=== PATIENT | female | born 1950 | race Caucasian/White ===

== ENCOUNTER 2023-06-10 00:40 | Inpatient (IN) | payer MEDICARE, OTHER ==
[~2023-06-10] VITALS: Ht 162.6 cm; Wt 74.8 kg
[2023-06-10] MEDS ORDERED: LORAZEPAM 1 MG TABLET PO ONE (01:30)
[2023-06-10] MEDS ORDERED: LORAZEPAM 0.5 MG TABLET ONE (01:30)
[2023-06-10] MEDS ORDERED: hydrOXYzine 10 MG TABLET ONE (01:30)
[2023-06-10] MEDS ORDERED: hydrOXYzine 10 MG TABLET PO ONE (01:30)
[2023-06-10] MEDS ORDERED: METF-442 PO (01:37)
[2023-06-10] MEDS ORDERED: FLUT1DIS3 INH (01:37)
[2023-06-10] MEDS ORDERED: LINA145C PO (01:37)
[2023-06-10] MEDS ORDERED: DILT180C93 PO (01:37)
[2023-06-10] MEDS ORDERED: HYDR-500 PO (01:37)
[2023-06-10] MEDS ORDERED: GABA-532 PO (01:37)
[2023-06-10] MEDS ORDERED: INSU100V27 SQ (01:37)
[2023-06-10] MEDS ORDERED: ONDA4TAB5 PO (01:37)
[2023-06-10] MEDS ORDERED: LEVO125T8 PO (01:37)
[2023-06-10] MEDS ORDERED: ISOS30TA86 PO (01:37)
[2023-06-10] MEDS ORDERED: ALBU2.5V13 NEB (01:37)
[2023-06-10] MEDS ORDERED: PANT40TA49 PO (01:37)
[2023-06-10] MEDS ORDERED: HYDR-4076 PO (01:37)
[2023-06-10] MEDS ORDERED: LISI20TA30 PO (01:37)
[2023-06-10] MEDS ORDERED: MELA1TAB47 PO (01:37)
[2023-06-10] MEDS ORDERED: CETI10TA14 PO (01:37)
[2023-06-10] MEDS ORDERED: IPRA4AER IH (01:37)
[2023-06-10] MEDS ORDERED: ASPI-869 PO (01:37)
[2023-06-10] MEDS ORDERED: METO-295 PO (01:37)
[2023-06-10] MEDS ORDERED: ROSU40TA PO (01:37)
[2023-06-10] MEDS ORDERED: INSU100V7 SQ (01:37)
[2023-06-10] MEDS ORDERED: GABA600T12 PO (01:37)
[2023-06-10] MEDS ORDERED: FERR325T23 PO (01:37)
[2023-06-10 03:01] LABS: BASOPHILS # (AUTO) 0.2 K/uL (0.0-0.2); EOSINOPHILS # (AUTO) 0.6 K/uL (0.0-0.7); EOSINOPHILS % (AUTO) 5.1 % (0.0-6.0); HEMATOCRIT 39 % (33-45); HEMOGLOBIN 12.7 g/dL (11.5-14.8); LYMPHOCYTES # (AUTO) 0.8 K/uL (0.8-4.8); LYMPHOCYTES % (AUTO) 7.2 % (20.0-44.0); MEAN CORPUSCULAR HEMOGLOBIN 26 PG (26.0-33.0); MEAN CORPUSCULAR HGB CONC 32 g/dl (31.0-36.0); MEAN CORPUSCULAR VOLUME 79 fL (82-100); MONOCYTES # (AUTO) 0.4 K/uL (0.1-1.30); MONOCYTES % (AUTO) 3.6 % (2.0-12.0); NEUTROPHILS # (AUTO) 9.4 K/uL (1.8-8.9); NEUTROPHILS % (AUTO) 82.1 % (43.0-81.0); PLATELET COUNT (AUTO) 377 K/uL (150-450); RED BLOOD CELL COUNT(AUTO) 4.97 MIL/uL (4.0-5.2); RED CELL DISTRIBUTION WIDTH 15.8 % (11.5-15.0); WHITE BLOOD COUNT (AUTO) 11.4 K/uL (4.3-11.0)
[2023-06-10 03:06] LABS: CARBON DIOXIDE 26 mmol/L (21-32); CHLORIDE 98 mmol/L (98-107); CREATININE 0.8 mg/dL (0.6-1.3); GLUCOSE 137 mg/dL (74-106); POTASSIUM 4.4 mmol/L (3.5-5.1); SODIUM SERUM 135 mmol/L (136-145); UREA NITROGEN, BLOOD 12 mg/dL (7-18)
[2023-06-10 03:12] LABS: ALANINE AMINOTRANSFERASE 24 U/L (12-78); ALBUMIN 3.8 g/dL (3.4-5.0); ALKALINE PHOSPHATASE 119 U/L (46-116); ASPARTATE AMINOTRANSFERASE 11 U/L (15-37); BILIRUBIN,DIRECT 0.1 mg/dL (0.0-0.2); BILIRUBIN,TOTAL 0.2 mg/dL (0.2-1.0); TOTAL PROTEIN, SERUM 7.4 g/dL (6.4-8.2)
[2023-06-10 03:14] LABS: ACETAMINOPHEN <10 ug/ml (10-30); ALCOHOL, BLOOD < 3 mg/dL (0-10); SALICYLATE 1.6 mg/dL (2.8-20.0)
[2023-06-10] MEDS ORDERED: MAG HYDROX/AL HYDROX/SIMETH 30 ML UDC PO PRN ×2 (05:00→13:30)
[2023-06-10] MEDS ORDERED: TEMAZEPAM 7.5 MG CAPSULE PO PRN (05:00)
[2023-06-10] MEDS ORDERED: MAGNESIUM HYDROXIDE 30 ML UDC PO PRN (05:00)
[2023-06-10] MEDS ORDERED: BLOOD SUGAR DIAGNOSTIC 1 EACH STRIP IN ONE (05:00)
[2023-06-10] MEDS ORDERED: ACETAMINOPHEN 325 MG TABLET PO PRN ×2 (05:00→13:00)
[2023-06-10 05:28] VITALS: BP 137/78; TEMP 98; O2SAT 95
[2023-06-10 08:00] VITALS: BP 138/68; TEMP 97.8; O2SAT 94
[2023-06-10] MEDS ORDERED: HYDR-3895 PO (08:52)
[2023-06-10] MEDS ORDERED: ALBU2.5V38 HHN (08:52)
[2023-06-10] MEDS ORDERED: FLUT16SP16 BNOSTRILS (08:52)
[2023-06-10] MEDS ORDERED: SIME80TA15 PO (08:52)
[2023-06-10] MEDS ORDERED: SODI100037 PO (08:52)
[2023-06-10] MEDS ORDERED: SENN-261 PO (08:52)
[2023-06-10] MEDS ORDERED: ACET-868 PO (08:52)
[2023-06-10] MEDS ORDERED: CYAN500T64 PO (08:52)
[2023-06-10] MEDS: Z GUARD REMEDY 4 OZ OINT TP SCH (12:10)
[2023-06-10] MEDS ORDERED: FLUTICASONE PROPIONATE 16 GM BOTTLE NS PRN (13:00)
[2023-06-10] MEDS ORDERED: METOCLOPRAMIDE HCL 10 MG TABLET PO PRN (13:00)
[2023-06-10] MEDS: ALBUTEROL FS 2.5 MG/0.5 ML VIAL.NEB NEB SCH ×2 (13:30→19:30)
[2023-06-10] MEDS: oxyCODONE IR immediate release 5 MG PO PRN ×2 (14:55→23:09)
[2023-06-10 15:59] VITALS: BP 122/78; TEMP 97.9; O2SAT 92
[2023-06-10] MEDS: FERROUS SULFATE (325 MG) 325 MG/TAB TABLET PO SCH (16:31)
[2023-06-10] MEDS: SERTRALINE HCL 25 MG TABLET PO SCH (16:31)
[2023-06-10] MEDS: CLOTRIMAZOLE 1% 15 GM TUBE TP SCH (16:32)
[2023-06-10] MEDS: METFORMIN 500 MG TABLET PO SCH (16:32)
[2023-06-10] MEDS: SENNOSIDES 8.6 MG TABLET PO SCH (16:32)
[2023-06-10] MEDS: SODIUM CHLORIDE 1000 MG TABLET PO SCH (16:38)
[2023-06-10] MEDS: INSULIN ASPART/LISPRO 100 UNIT/ML CARTRIDGE SQ SCH (17:18)
[2023-06-10] MEDS: BUDESONIDE RESPULE INH 0.5 MG/2 ML AMPUL.NEB NEB SCH (19:30)
[2023-06-10] MEDS: ONDANSETRON 4 MG TAB.RAPDIS PO PRN (19:52)
[2023-06-10 20:00] VITALS: BP_SYST 124; BP_SYST 93; BP_DIAS 46; BP_DIAS 75; TEMP 98.1; TEMP 98.4; O2SAT 94; O2SAT 96
[2023-06-10 20:11] LABS: APPEARANCE,URINE CLEAR (CLEAR); BILIRUBIN,URINE NEGATIVE (NEGATIVE); BLOOD, URINE NEGATIVE Ery/uL (NEGATIVE); COLOR,URINE YELLOW (YELLOW); KETONES,URINE NEGATIVE (NEGATIVE); LEUKOCYTE ESTERASE ,URINE NEGATIVE (NEGATIVE); NITRITE, URINE NEGATIVE (NEGATIVE); PH,URINE 6.5 (5.0-8.0); PROTEIN,URINE NEGATIVE (NEGATIVE); UGLUCOSE NEGATIVE (NEGATIVE); UROBILINOGEN,URINE 0.2 EU/dL (0.2)
[2023-06-10 20:27] LABS: AMPHETAMINE, URINE NEGATIVE (NEGATIVE); BARBITURATE, URINE NEGATIVE (NEGATIVE); BENZODIAZEPINE, URINE NEGATIVE (NEGATIVE); CANNABINOID, URINE NEGATIVE (NEGATIVE); COCCAINE, URINE NEGATIVE (NEGATIVE); OPIATE, URINE NEGATIVE (NEGATIVE); PHENCYCLIDINE SCREEN,URINE NEGATIVE (NEGATIVE)
[2023-06-10] MEDS: INSULIN GLARGINE, 100 UNIT/ML CARTRIDGE SQ SCH (22:00)
[2023-06-10] MEDS ORDERED: Medication Not On Formulary EA (Melatonin 1 MG) PO SCH (22:00)
[2023-06-10] MEDS: GABAPENTIN 300 MG CAPSULE PO SCH (22:18)
[2023-06-10] MEDS: ATORVASTATIN 40 MG TABLET PO SCH (22:18)
[2023-06-11] MEDS: ALBUTEROL FS 2.5 MG/0.5 ML VIAL.NEB NEB SCH ×4 (01:30→19:30)
[2023-06-11] MEDS: LORAZEPAM 0.5 MG TABLET PO PRN (02:53)
[2023-06-11 07:21] LABS: BASOPHILS # (AUTO) 0.1 K/uL (0.0-0.2); BASOPHILS % (AUTO) 0.6 % (0.0-2.0); EOSINOPHILS % (AUTO) 7.6 % (0.0-6.0); HEMATOCRIT 39 % (33-45); HEMOGLOBIN 12.7 g/dL (11.5-14.8); LYMPHOCYTES # (AUTO) 2.8 K/uL (0.8-4.8); LYMPHOCYTES % (AUTO) 21.9 % (20.0-44.0); MEAN CORPUSCULAR HEMOGLOBIN 26 PG (26.0-33.0); MEAN CORPUSCULAR HGB CONC 33 g/dl (31.0-36.0); MEAN CORPUSCULAR VOLUME 80 fL (82-100); MONOCYTES % (AUTO) 7.6 % (2.0-12.0); NEUTROPHILS # (AUTO) 7.9 K/uL (1.8-8.9); NEUTROPHILS % (AUTO) 62.3 % (43.0-81.0); PLATELET COUNT (AUTO) 375 K/uL (150-450); RED BLOOD CELL COUNT(AUTO) 4.87 MIL/uL (4.0-5.2); RED CELL DISTRIBUTION WIDTH 15.3 % (11.5-15.0); WHITE BLOOD COUNT (AUTO) 12.6 K/uL (4.3-11.0)
[2023-06-11 07:41] LABS: ALBUMIN 3.5 g/dL (3.4-5.0); BILIRUBIN,TOTAL 0.2 mg/dL (0.2-1.0); CALCIUM, SERUM 9.1 mg/dL (8.5-10.1); CREATININE 0.8 mg/dL (0.6-1.3); MAGNESIUM 1.6 mg/dL (1.8-2.4); PHOSPHORUS 4.2 mg/dL (2.5-4.9); TOTAL PROTEIN, SERUM 7.2 g/dL (6.4-8.2)
[2023-06-11 08:00] VITALS: BP 137/70; TEMP 97.8; O2SAT 93
[2023-06-11] MEDS: SODIUM CHLORIDE 1000 MG TABLET PO SCH ×3 (08:14→16:38)
[2023-06-11] MEDS: GABAPENTIN 300 MG CAPSULE PO SCH ×2 (08:14→22:19)
[2023-06-11] MEDS: METFORMIN 500 MG TABLET PO SCH ×2 (08:14→16:33)
[2023-06-11] MEDS: ASPIRIN EC 325 MG TABLET.DR PO SCH (08:14)
[2023-06-11] MEDS: CYANOCOBALAMIN 500 MCG TABLET PO SCH (08:14)
[2023-06-11] MEDS: FERROUS SULFATE (325 MG) 325 MG/TAB TABLET PO SCH ×2 (08:15→16:33)
[2023-06-11] MEDS: CLOTRIMAZOLE 1% 15 GM TUBE TP SCH ×2 (08:15→17:09)
[2023-06-11] MEDS: LEVOTHYROXINE SODIUM 125 MCG TABLET PO SCH (08:15)
[2023-06-11] MEDS: cetrizine 10 MG TABLET PO SCH (08:15)
[2023-06-11] MEDS: PANTOPRAZOLE 40 MG TABLET.DR PO SCH (08:15)
[2023-06-11] MEDS: Z GUARD REMEDY 4 OZ OINT TP SCH (08:16)
[2023-06-11] MEDS: LISINOPRIL (20MG) 20 MG TABLET PO SCH (08:17)
[2023-06-11] MEDS: SENNOSIDES 8.6 MG TABLET PO SCH ×2 (08:17→16:33)
[2023-06-11] MEDS: ISOSORBIDE MONONITRATE (30MG) 30 MG TAB.SR.24H PO SCH (08:17)
[2023-06-11] MEDS: hydrALAZINE HCL 25 MG TABLET PO SCH (08:18)
[2023-06-11] MEDS: INSULIN ASPART/LISPRO 100 UNIT/ML CARTRIDGE SQ SCH ×3 (08:22→17:09)
[2023-06-11 08:25] VITALS: O2SAT 93
[2023-06-11] MEDS: BUDESONIDE RESPULE INH 0.5 MG/2 ML AMPUL.NEB NEB SCH ×2 (08:51→19:30)
[2023-06-11] MEDS ORDERED: DILTIAZEM HCL CD 180 MG PO SCH (09:00)
[2023-06-11] MEDS ORDERED: Medication Not On Formulary EA (Linaclotide (Linzess) 145 MCG) PO SCH (09:00)
[2023-06-11 09:19] VITALS: O2SAT 97
[2023-06-11] MEDS: oxyCODONE IR immediate release 5 MG PO PRN ×2 (09:41→22:32)
[2023-06-11] MEDS ORDERED: MAGNESIUM OXIDE 400 MG TABLET PO ONE (10:30)
[2023-06-11 14:23] VITALS: O2SAT 93
[2023-06-11 14:38] VITALS: O2SAT 98
[2023-06-11] MEDS: hydrOXYzine PAMOATE 25 MG CAPSULE PO PRN (15:32)
[2023-06-11] MEDS: SERTRALINE HCL 25 MG TABLET PO SCH (16:33)
[2023-06-11 17:00] VITALS: BP 93/49; TEMP 98.3; O2SAT 94
[2023-06-11] MEDS: INSULIN GLARGINE, 100 UNIT/ML CARTRIDGE SQ SCH (22:00)
[2023-06-11] MEDS: ATORVASTATIN 40 MG TABLET PO SCH (22:19)
[2023-06-11] MEDS: BLOOD SUGAR DIAGNOSTIC 1 EACH STRIP IN SCH (22:27)
[2023-06-11] MEDS: ONDANSETRON 4 MG TAB.RAPDIS PO PRN (23:02)
[2023-06-12] VITALS (14 sets, daily range): BP systolic 105–124; BP diastolic 42–70; TEMP 98.1–98.4; O2SAT 91–98
[2023-06-12] MEDS: ALBUTEROL FS 2.5 MG/0.5 ML VIAL.NEB NEB SCH ×4 (00:48→20:23)
[2023-06-12] MEDS: LEVOTHYROXINE SODIUM 125 MCG TABLET PO SCH (07:24)
[2023-06-12] MEDS: INSULIN ASPART/LISPRO 100 UNIT/ML CARTRIDGE SQ SCH ×3 (07:35→18:10)
[2023-06-12] MEDS: BUDESONIDE RESPULE INH 0.5 MG/2 ML AMPUL.NEB NEB SCH ×2 (07:37→20:22)
[2023-06-12] MEDS: PANTOPRAZOLE 40 MG TABLET.DR PO SCH (07:41)
[2023-06-12] MEDS: CLOTRIMAZOLE 1% 15 GM TUBE TP SCH ×2 (09:00→18:04)
[2023-06-12] MEDS: Z GUARD REMEDY 4 OZ OINT TP SCH (09:00)
[2023-06-12] MEDS: GABAPENTIN 300 MG CAPSULE PO SCH ×2 (09:52→21:05)
[2023-06-12] MEDS: SODIUM CHLORIDE 1000 MG TABLET PO SCH ×3 (09:52→17:54)
[2023-06-12] MEDS: CYANOCOBALAMIN 500 MCG TABLET PO SCH (09:52)
[2023-06-12] MEDS: FERROUS SULFATE (325 MG) 325 MG/TAB TABLET PO SCH ×2 (09:52→17:53)
[2023-06-12] MEDS: ASPIRIN EC 325 MG TABLET.DR PO SCH (09:52)
[2023-06-12] MEDS: SENNOSIDES 8.6 MG TABLET PO SCH ×2 (09:53→17:54)
[2023-06-12] MEDS: METFORMIN 500 MG TABLET PO SCH ×2 (09:53→17:52)
[2023-06-12] MEDS: cetrizine 10 MG TABLET PO SCH (09:54)
[2023-06-12] MEDS: LISINOPRIL (20MG) 20 MG TABLET PO SCH (09:58)
[2023-06-12] MEDS: hydrALAZINE HCL 25 MG TABLET PO SCH (09:58)
[2023-06-12] MEDS: ISOSORBIDE MONONITRATE (30MG) 30 MG TAB.SR.24H PO SCH (09:58)
[2023-06-12 11:08] LABS: CALCIUM, SERUM 8.7 mg/dL (8.5-10.1); CREATININE 1.2 mg/dL (0.6-1.3); MAGNESIUM 1.5 mg/dL (1.8-2.4); PHOSPHORUS 4.4 mg/dL (2.5-4.9); POTASSIUM 4.3 mmol/L (3.5-5.1)
[2023-06-12 11:24] LABS: BASOPHILS # (AUTO) 0.1 K/uL (0.0-0.2); BASOPHILS % (AUTO) 0.4 % (0.0-2.0); EOSINOPHILS # (AUTO) 0.7 K/uL (0.0-0.7); EOSINOPHILS % (AUTO) 5.2 % (0.0-6.0); HEMATOCRIT 36 % (33-45); HEMOGLOBIN 11.6 g/dL (11.5-14.8); LYMPHOCYTES % (AUTO) 14.1 % (20.0-44.0); MEAN CORPUSCULAR HEMOGLOBIN 26 PG (26.0-33.0); MEAN CORPUSCULAR HGB CONC 32 g/dl (31.0-36.0); MEAN CORPUSCULAR VOLUME 79 fL (82-100); MONOCYTES # (AUTO) 0.8 K/uL (0.1-1.30); MONOCYTES % (AUTO) 5.9 % (2.0-12.0); NEUTROPHILS # (AUTO) 10.5 K/uL (1.8-8.9); NEUTROPHILS % (AUTO) 74.4 % (43.0-81.0); PLATELET COUNT (AUTO) 368 K/uL (150-450); RED BLOOD CELL COUNT(AUTO) 4.52 MIL/uL (4.0-5.2); RED CELL DISTRIBUTION WIDTH 15.6 % (11.5-15.0)
[2023-06-12] MEDS: DILTIAZEM HCL CD 120 MG PO SCH (12:00)
[2023-06-12] MEDS: hydrOXYzine PAMOATE 25 MG CAPSULE PO PRN (12:24)
[2023-06-12] MEDS: oxyCODONE IR immediate release 5 MG PO PRN (12:24)
[2023-06-12] MEDS: SERTRALINE HCL 25 MG TABLET PO SCH (17:55)
[2023-06-12] MEDS: LORAZEPAM 0.5 MG TABLET PO PRN (18:00)
[2023-06-12] MEDS: ATORVASTATIN 40 MG TABLET PO SCH (21:05)
[2023-06-12] MEDS: BLOOD SUGAR DIAGNOSTIC 1 EACH STRIP IN SCH (21:32)
[2023-06-12] MEDS: INSULIN GLARGINE, 100 UNIT/ML CARTRIDGE SQ SCH (21:32)
[2023-06-13] MEDS: ALBUTEROL FS 2.5 MG/0.5 ML VIAL.NEB NEB SCH ×2 (00:40→07:22)
[2023-06-13] MEDS: oxyCODONE IR immediate release 5 MG PO PRN ×2 (05:35→13:40)
[2023-06-13] MEDS: LEVOTHYROXINE SODIUM 125 MCG TABLET PO SCH (06:35)
[2023-06-13] MEDS: hydrOXYzine PAMOATE 25 MG CAPSULE PO PRN (06:39)
[2023-06-13 07:00] VITALS: BP 122/62; TEMP 97.9; O2SAT 95
[2023-06-13] MEDS: BUDESONIDE RESPULE INH 0.5 MG/2 ML AMPUL.NEB NEB SCH (07:22)
[2023-06-13 07:24] VITALS: O2SAT 95
[2023-06-13 07:34] VITALS: O2SAT 98
[2023-06-13] MEDS: INSULIN ASPART/LISPRO 100 UNIT/ML CARTRIDGE SQ SCH ×2 (08:28→13:07)
[2023-06-13] MEDS: ASPIRIN EC 325 MG TABLET.DR PO SCH (09:37)
[2023-06-13] MEDS: hydrALAZINE HCL 25 MG TABLET PO SCH (09:37)
[2023-06-13] MEDS: FERROUS SULFATE (325 MG) 325 MG/TAB TABLET PO SCH (09:38)
[2023-06-13] MEDS: SENNOSIDES 8.6 MG TABLET PO SCH (09:38)
[2023-06-13] MEDS: DILTIAZEM HCL CD 120 MG PO SCH (09:38)
[2023-06-13] MEDS: METFORMIN 500 MG TABLET PO SCH (09:38)
[2023-06-13] MEDS: cetrizine 10 MG TABLET PO SCH (09:39)
[2023-06-13] MEDS: SODIUM CHLORIDE 1000 MG TABLET PO SCH ×2 (09:39→12:49)
[2023-06-13] MEDS: ISOSORBIDE MONONITRATE (30MG) 30 MG TAB.SR.24H PO SCH (09:39)
[2023-06-13] MEDS: PANTOPRAZOLE 40 MG TABLET.DR PO SCH (09:39)
[2023-06-13] MEDS: GABAPENTIN 300 MG CAPSULE PO SCH (09:39)
[2023-06-13] MEDS: CYANOCOBALAMIN 500 MCG TABLET PO SCH (09:39)
[2023-06-13 09:40] VITALS: BP 122/62
[2023-06-13] MEDS: LISINOPRIL (20MG) 20 MG TABLET PO SCH (09:40)
[2023-06-13] MEDS: Z GUARD REMEDY 4 OZ OINT TP PRN ×2 (11:17→11:18)
[2023-06-13] MEDS: CLOTRIMAZOLE 1% 15 GM TUBE TP SCH (11:17)
[2023-06-13] MEDS: Z GUARD REMEDY 4 OZ OINT TP SCH (11:19)
[2023-06-13] MEDS: LORAZEPAM 0.5 MG TABLET PO PRN (12:49)
== END 2023-06-13 14:10 | DRG 881 ==
LOC: ER 00:46 → GPS 04:04 → GPSOV 06-11 15:46
PROVIDERS: ADMIT Psychiatry & Neurology Psychosomatic Medicine; ATTEND Nurse Practitioner Acute Care
DX: F32.A Depression, unspecified (principal); I11.0 Hypertensive heart disease with heart failure; E87.1 Hypo-osmolality and hyponatremia; F29 Unspecified psychosis not due to a substance or known physiological condition; E78.5 Hyperlipidemia, unspecified; J44.9 Chronic obstructive pulmonary disease, unspecified; M79.7 Fibromyalgia; Z20.822 Contact with and (suspected) exposure to COVID-19; F43.10 Post-traumatic stress disorder, unspecified; G31.84 Mild cognitive impairment of uncertain or unknown etiology; I50.9 Heart failure, unspecified; I25.2 Old myocardial infarction; E03.9 Hypothyroidism, unspecified; E11.9 Type 2 diabetes mellitus without complications; Z74.09 Other reduced mobility; Z79.4 Long term (current) use of insulin; Z79.84 Long term (current) use of oral hypoglycemic drugs; Z79.890 Hormone replacement therapy; Z79.82 Long term (current) use of aspirin; Z95.5 Presence of coronary angioplasty implant and graft; Z91.410 Personal history of adult physical and sexual abuse; Z87.891 Personal history of nicotine dependence; Z86.73 Personal history of transient ischemic attack (TIA), and cerebral infarction without residual deficits; D72.829 Elevated white blood cell count, unspecified; Z86.79 Personal history of other diseases of the circulatory system
CPT/HCPCS: 36415; 71045-TC; 80048-TC; 80053-TC; 80061-TC; 80076-TC; 82962-TC; 83735-TC; 84100-TC; 85025-TC; 87081-TC; 87086-TC; 94799-TC; 97112-TC; 97116-TC; 97530-TC; C9803; G0480; J1815; Q0162; Q0177